=== PATIENT | male | born 1970 | race Two or more races ===

== ENCOUNTER 2018-06-07 13:50 | Emergency (ER) | payer MEDICARE, MEDICAID ==
[2018-06-07 13:57] VITALS: BP 121/78
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
== END 2018-06-07 14:59 | disposition home or self-care (01) ==
LOC: ER 13:50
DX: L25.9 Unspecified contact dermatitis, unspecified cause (principal); J45.909 Unspecified asthma, uncomplicated
CPT/HCPCS: 99281

== ENCOUNTER → 2018-12-20 | Outpatient (CLI) | payer MEDICARE, MEDICAID ==
--- NOTE | 2018-12-20 17:15 | NEURO WORKBENCH EEG REPORT ---
Patient: Álvaro Rodriges ID: [id number] Referring Doctor: Colt Theodore Date: 12/20/2018 Reason for study: Evaluate Epileptiform activity Medications: Zion De Luna History: This is a 48 year old male with a history of epilepsy reportedly since , JOHN, and environmental allergies. His last seizure was in November 2018 reportedly due to missing medication doses. This EEG was requested for evaluation of epileptiform activity. EEG Interpretation: This EEG was recorded during predominantly wakefulness with minimal stage I sleep. The awake EEG is characterized by a well organized background with a well developed and reactive posterior dominant rhythm (PDR) of approximately 9-10 Hz. The remainder of the wakefulness background consisted of more generalized alpha activity and minimal low amplitude frontally predominant beta activity. The EEG is symmetric in amplitudes and frequencies. Photic stimulation resulted in a minimal photic driving response best seen at 17 Hz, and there was no epileptiform activity elicited with photic stimulation. Hyperventilation resulted in minimal slowing of the background EEG by 0.5-1 Hz (normal for age) and no epileptiform activity was elicited. Minimal stage I sleep was achieved and characterized by minimal slow rolling eye movements, and slowing of the background rhythm by about 0.5 to 1 Hz, with minimal symmetric fragmentary theta activity. There were no vertex waves. Stage II sleep was not achieved. There were no epileptiform abnormalities (no sharp waves and no spikes). There were no seizures. The EKG showed a regular rhythm with typically 60-90 beats per minute. EEG Impression: This EEG is within normal limits for age. There was no epileptiform activity or seizures. A single normal routine EEG does not rule out the possibility of epilepsy, and it should be noted that the patient is currently noted to be on two different antiepileptic medications which could suppress inter-ictal epileptiform activity. If further characterization of the patients reported epilepsy type/character is desired (ie localized versus generalized, epilepsy surgery consideration, etc), then additional EEG evaluation should be considered with a sleep-deprived EEG or more prolonged EEG monitoring. INTERPRETING NEUROLOGIST: MD NYDIA Walters
== END ==
LOC: NEURO 12:54
PROVIDERS: ATTEND Pediatrics
DX: G40.109 Localization-related (focal) (partial) symptomatic epilepsy and epileptic syndromes with simple partial seizures, not intractable, without status epilepticus (principal); F43.0 Acute stress reaction
CPT/HCPCS: 95819